=== PATIENT | male | born 1975 | race Caucasian/White ===

== ENCOUNTER 2022-03-04 13:06 | Emergency (ER) | payer BC, SELFPAY ==
[2022-03-04 13:07] VITALS: BP 143/85; PULSE 60; RESP 18; TEMP 36.4; O2SAT 99; BMI 30.1
--- NOTE | 2022-03-04 14:51 | EX.ED.UPPERE ---
HPI History of Present Illness Chief Complaint: Upper Extremity Injury Detail of Chief Complaint: Blunt, right index finger a couple hours prior to presentation Informant: patient Occured/Mechanism Mechanism/Context: Yes blunt trauma and Yes crush Comment: Hit with a sledgehammer Onset/Context/Timing Context: Sudden Onset Timing: Continuous Quality of Pain: Dull, Aching and Throbbing Location: Right index finger Current Severity: Mild Maximum Severity: Severe Worsened by: Initial injury Relieved by: Nothing specific Associated Symptoms Associated Symptoms: Positive for Loss of Funtion; Negative for Parasthesia or Weakness Narrative Narrative: Patient is a 46-year-old male who presents with injury to his right index finger. This occurred due to blunt trauma. He was seen by his PCP. 2 stitches were placed. He was anesthetized locally. He denies paresthesia, anesthesia medics. He is unable to flex or extend at the PIP joint. X-ray was performed as outpatient and patient has a fracture dislocation of the PIP joint. The fracture is involving the condyles of the proximal phalanx. It does go into the joint. Tetanus Immunization: Unknown Prior similar symptoms: No Recent Illness/Hospitalization: No PFSH PFSH Medical History Seasonal allergies Home Medications fluticasone propionate 50 mcg/actuation nasal spray,suspension 1 spray DAILY PRN PRN Allergies 02/12/14 [History Last Taken Unknown] ibuprofen 200 mg tablet 200 mg PO Q6H PRN PRN Mild/Moderate Pain 02/12/14 [History Last Taken Unknown] cephalexin 500 mg capsule 500 mg PO Q6 #20 CAPSULES 03/04/22 [Rx Last Taken Unknown] Allergy/AdvReac Type Severity Reaction Status Date / Time No Known Allergies Allergy Verified 03/04/22 13:07 Surgical History H/O hernia repair Hx of tonsillectomy Social History (Updated 03/04/22 @ 14:[address] Avtar Merchant MD) household members: spouse Smoking Status: Never smoker substance use type: does not use ROS ROS ED Constitutional Constitutional ED: Reports other Details: Patient last ate at 0930 ; Denies chills, fever(s), subjective, sweats or weight loss Eyes Eyes: Denies blurry vision, change in vision or diplopia ENT ENT ED: Denies ear pain, rhinorrhea or sore throat Cardiovascular Cardiovascular: Denies chest pain or palpitations Respiratory/Chest Respiratory/Chest: Denies cough or dyspnea Musculoskeletal Musculoskeletal: Reports other Details: Patient states he believes he can see the bone. 2 stitches were placed by his position. These will require removal for examination ; Denies back pain, myalgias or neck pain Integumentary Reports other Details: Laceration dorsal side right index finger over the PIP joint Neurologic Neurologic: Denies paresthesias or weakness Hematologic/Lymphatic Hematologic/Lymphatic: Denies easy bleeding or easy bruising EXAM Physical Exam Const Vital Signs: 03/04/22 13:07 Temperature 97.5 F L Temperature Source Temporal Pulse Rate 60 Respiratory Rate 18 Blood Pressure 143/85 H Blood Pressure Mean 104 Pulse Ox 99 Oxygen Delivery Method Room Air Positive well nourished and well developed General Appearance ED: well developed and NAD HEENT Reports moist mucous membranes normocephalic and atraumatic Eyes PERRL and EOMs intact bilaterally Eyes Narrative: Sclera is anicteric. Can is pink. Neck full ROM and supple Resp normal respiratory effort and clear to auscultation bilaterally Cardio regular rate, regular rhythm, S1 normal heart sound, S2 normal heart sound and no murmurs GI non-tender, non-distended and no masses Auscultation: normoactive bowel sounds Palpation: soft Extremity Negative for normal to inspection Extremity Narrative: Patient has deformity with right index finger in flexion at the PIP joint. He has normal capillary refill. He has normal two-point discrimination. There is no subungual hematoma noted. He has no pain the patient over the distal DIP joint. He has no pain the patient over the MCP joint. There is no evidence of injury to the thumb, long finger, ring finger or little finger. Neuro oriented x3, CN's II-XII intact bilaterally, moves all extremities, no focal motor deficits and no sensory deficits noted Neuro Narrative: Median, radial and ulnar action and tach. Sensorium / Orientation: alert Psych mental status grossly normal Skin Skin Narrative: Laceration over the dorsal side of the PIP joint right index finger Rashes: no rashes Trauma: laceration MDM MDM MDM Narrative Medical decision making narrative: Digital block was placed. The fracture dislocation was reduced. Patient states he is back in flexion unable to extend. The sutures were removed. Patient has evidence of a traumatic arthrotomy. There is evidence of involvement of the extensor tendon and central slip. Suspect this is why patient's finger falls in flexion and unable to extend. Will obtain x-ray to determine if the joint has been reduced. Since there is involving the extensor tendon the central slip and jones will contact physician on-call for [facility] for definitive care. Because of the type of injury Dr. Atkins for [facility] was contacted. She would like patient to call office on Monday to be seen on Monday. She agrees with treatment. She requested cephalexin 4 times a day. Postreduction film is pending. Radiography Diagnostic Testing: Three-view x-ray of the right index finger reveals reduction of the dislocation. There is a fracture involving the ulnar condyle of the proximal phalanx. There is no other abnormality noted. Procedures Other Procedures Procedure(s): 1. Digital block 2. The wound was irrigated with 1 L of normal saline. The wound was approximated with 3 simple erupted sutures. Length of laceration 2.5 cm. 3. Reduction of dislocated PIP joint. Traction was applied and the joint was easily reduced. Awaiting postreduction film. Discharge Plan Triage Chief Complaint: Upper Extremity Injury ED Provider: Avtar Merchant Dx/Rx/DC Orders Clinical Impression: Open fracture dislocation of finger, Extensor tendon laceration, finger, open wound Instructions: ED Open Hand Fracture (Adult) Prescriptions: New cephalexin [cephalexin] 500 mg capsule 500 mg PO Q6 Qty: 20 0RF No Action ibuprofen 200 MG tablet 200 mg PO Q6H PRN PRN (Reason: Mild/Moderate Pain) fluticasone propionate 1 SPRAY spray,suspension 1 spray NASAL DAILY PRN PRN (Reason: Allergies) Primary Care Provider: Wilson Wilson Referrals: Wilson Wilson MD [Primary Care Provider] - Faviola Mcleod MD [Non-Staff] - As soon as possible Activity Restrictions/Additional Instructions: 1. Keep finger absolutely clean and dry 2. Take antibiotics as directed until gone 3. Call Dr. Faviola Mcleod's office Monday to be seen Monday. Telephone number is [phone] Disposition Disposition: Home, Self Care
[2022-03-04] MEDS: Lidocaine 1% (20 ml mdv) 20 ML Vial 5 ML INFILT (15:04)
[2022-03-04] MEDS: Diphth,Pertuss(Acell),Tet Vac 0.5 ML Vial IM (15:25)
[2022-03-04] MEDS: Cefazolin 1 GM/50 ML BAG IV (15:37)
[2022-03-04] MEDS: Lidocaine 1% (20 ml mdv) 20 ML Vial INFILT (16:25)
--- NOTE | 2022-03-04 16:25 | RAD_ITS ---
EXAM: XR RIGHT FINGERS, 2 OR MORE VIEWS CLINICAL INDICATION: Injury/Pain -- Duction of dislocation/fracture PIP joint TECHNIQUE: Frontal, lateral and oblique views of the fingers of the right hand. This report was created using [employer] report generation technology. COMPARISON: None. FINDINGS: BONES/JOINTS: Unremarkable. No acute fracture. No subluxation. Normal alignment. Preservation of the joint space. No sclerotic or destructive changes observed. SOFT TISSUES: Mild soft tissue swelling over the proximal interphalangeal joint. No radiopaque foreign body. RAD/Finger(s) Min 2 Views IMPRESSION: Minimal soft tissue swelling with no osseous abnormalities of the right second finger. Electronically Signed: Delano Michelle MD at 16:45 EST ,
[2022-03-04 16:41] VITALS: BP 134/78; PULSE 78; RESP 18; TEMP 36.4; O2SAT 100
== END 2022-03-04 16:55 | disposition home or self-care (01) ==
PROVIDERS: Emergency Provider Emergency Medicine; PCP Family Medicine; Visit Provider Emergency Medicine
DX: S62.600B Fracture of unspecified phalanx of right index finger, initial encounter for open fracture (principal); S66.322A Laceration of extensor muscle, fascia and tendon of right middle finger at wrist and hand level, initial encounter; Z23 Encounter for immunization; X58.XXXA Exposure to other specified factors, initial encounter
CPT/HCPCS: 12001; 73140; 90471; 90715; 96365; 99285; A4216

== ENCOUNTER → 2022-03-04 | Outpatient (CLI) | payer BC, SELFPAY ==
--- NOTE | 2022-03-04 11:21 | RAD_ITS ---
STUDY: X-RAY - RIGHT HAND, ATTENTION SECOND FINGER REASON FOR EXAM: Male, 46 years old. Hand injury. Pain. TECHNIQUE: 3 view(s) of the finger were obtained. COMPARISON: None. FINDINGS: Osteopenia. 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 Minimally displaced fracture of the head of the second metacarpal with intra-articular extension. Soft tissue swelling at the fracture site. RAD/Finger(s) Min 2 Views IMPRESSION: Osteopenia with fracture of the second metacarpal head with intra-articular extension. 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 Electronically Signed: Gino Cesar, at 11:58 EST ,
== END | disposition home or self-care (01) ==
LOC: MTRAD 11:13
PROVIDERS: PCP Family Medicine; Referring Provider Family Medicine; Visit Provider Family Medicine
DX: S69.91XA Unspecified injury of right wrist, hand and finger(s), initial encounter (principal)
CPT/HCPCS: 73140

== ENCOUNTER 2022-05-13 08:30 | Outpatient (RCR) | payer BC, SELFPAY ==
--- NOTE | 2022-04-18 18:48 | HP.OTEVAL ---
Patient's Visit Information AURA WHITFIELD is a 47 year old M, referred to Occupational Therapy by Dr. Faviola Mcleod MD, with a diagnosis of right IF proximal phalanx open fx, and extensor tendon laceration. Date of Evaluation: 04/15/22 Occupational Therapist: Radha Rodriguez, CE/Edi, CHT - Subjective This 47 year old male was seen for OT eval with dx of open displaced fracture of proximal phalanx IF- pt states he hit his hand while placing a post- followed with referral to Dr. Mcleod- DOI 03/04/22. and DOS 03/08/22. pt underwent a right IF proximal phalanx open reduction internal fixation at PIPJ, and Extensor tendon repair wound closure. pt is right handed. pt works [employer] 3rd shift. pt has limited ROM and this limits pts IND. with ADLs and IADls. pt would like to return to his PLOF. - Pain right IF 0 Pain Intensity Range: 3 - ROM MP: right IF -12/40 left 0/85 PIP: right IF -12/40 left 0/105 DIP: right -10/0 left 0/70 ROM Comments: pt demo with slight Boutonniere deformity. - Strength Business And Services Instructor: right NT left 110# Lateral Pinch: right NT left 22# Tripod Pinch: right NT left 16# - Sensation Sensation Comments: denies - Quick DASH-Disab of Arm,Shoulder& Hand Quick DASH Score: 7.1425 - Goals Goal:100% adherence to protocol: Yes Comment: extensor tendon protocol zone 2/3 Goal:Daily scar massage when approriate: Yes Goal:ROM equal to unaffected hand: Yes Goal:Business And Services Instructor/Pinch strength at least 75% of unaffected hand: Yes Goal:No pain with affected hand use: Yes Goal:PIP Circumferences equal to unaffected hand: Yes - Rehabilitation General Assessment: pt 5 weeks and 2 days s/p from ORIF of displaced fx of proximal phalanx of right IF with extensor tendon repair ( possible zone 2-3). pt extensor tendon was repaired with FiberWire and fx repaired with internal fixation. pt arrives today with orders from order dated on 03/25/22 to initiate ROM in two weeks ( which should have been 04/08/22). Pt is currently 3 weeks past date of ROM initiation. pt states he started to move it on his own and feels it is moving. Today pt demo with hyper ext at MP with attempts to straighten finger - PIP is slight flex and DIP in hyper ext. demo slight Boutonniere deformity. therapist ed. on limiting hyper ext at MP while working on extending his PIPJ. pt demo understanding. Pt does feel pull with DIP initiation of movement. therapist advised pt in holding end range AROM for 8-10 sec. pt demo understanding. pt would benefit from skilled OTR/L,CHT services 1-2x week for 8 weeks but due to pts concerns with cost of therapy therapy will work with what pt is willing to attend. Rehabilitation Potential: Good - Anticipated Interventions A/AAROM/PROM, Strengthening, Edema Control, Scar Care, Triggerpoint Release, Modalities, Orthoses, Joint Protection/Energy Conservation, Fine Motor Coord/Juan Miguel, Education re Diagnosis, Home Program - Visit Plan Frequency: 1-2x /Week Duration: 2 Months General Plan: Pt. HAS CONCERNS WITH COST OF THERAPY, AND EVEN THOUGHT TO JUST GO SEE HIS FAMILY TO WORK ON HIS HAND. THERAPIST ED. PT ON NEED OF SKILLED THERAPY SERVICES A CHT, PT DEMO UNDERSTANDING- THERAPIST ED. PT ON AROM EX AND SCAR MTG. ADVISED TO RETURN TO CLINIC IN ONE WEEK IN PT DID NOT SEE GAINS IN HIS ROM AND THAT OUR [facility] WOULD HELP ASSIST WITH PAYMENTS. PT DEMO UNDERSTANDING AND AGREE. THERAPIST ADVISED TO RETURN FOR MEASURMENTS PRIOR TO DR. REDDING SO CAN HAVE UPDATED MEASURMETNS PRIOR TO RETURNING TO HIS APT. PT DEMO UNDERSTANDING AND AGREED TO POC. TEXT: Thank you for the opportunity to evaluate your patient. For Medicare and Medicare HMO plans, please review the plan of care and approve it. It will need to be FAXED BACK to us at [phone] for Medicare purposes. Please let me know if there are questions or concerns regarding this plan of care. Physician Signature: Date:
--- NOTE | 2022-05-03 14:59 | HP.OTREVAL ---
Dr. Faviola Mcleod MD, It has been my pleasure to treat AURA WHITFIELD over the last 3 visits for right IF proximal phalanx open fx, and extensor tendon laceration. Please see the progress note below for an update on the occupational therapy plan of care! Subjective: pt 8 weeks s/p extensor tendon repair and fx of phalanx - today from pt arrives states he was massaging the sides of his finger while trying to bend his finger and an hour later finger has been painful - pt states swelling and pain with movement since- is using cool tap water - digi sleeve and orthosis until pain decreases. Objective/Function: right IF PIP ROM -20/48* initial was -12/40. right IF DIP ROM +5/5* initial no motion. swelling of IF .8. pt is following his HEP with scar mtg- using digi sleeve for edema and orthosis when he is up and moving- Plan Frequency: 1-2x /Week Duration: 2 Months Goals - Goals Patient Goals: Regain Mobility, Decrease Swelling/Stiffness, Improve Fine Motor Skills, Be More Independent in ADLS Goal:100% adherence to protocol: Yes Goal:Daily scar massage when approriate: Yes Goal:ROM equal to unaffected hand: Yes Goal:Chemical Treatment Plant Technician/Pinch strength at least 75% of unaffected hand: Yes Goal:No pain with affected hand use: Yes Goal:PIP Circumferences equal to unaffected hand: Yes Anticipated Interventions Anticipated Interventions: A/AAROM/PROM, Strengthening, Edema Control, Scar Care, Triggerpoint Release, Modalities, Orthoses, Joint Protection/Energy Conservation, Fine Motor Coord/Juan Miguel, Education re Diagnosis, Home Program Please do not hesitate to contact me at [phone] by phone or if you have questions or concerns regarding this new plan of care! Sincerely, Radha Rodriguez, ABBIER/L, CHT
--- NOTE | 2022-07-27 15:40 | HP.OT.NRP ---
AURA WHITFIELD was seen in my office for initial evaluation on 04/15/22. The following Plan of Care was established for this patient: Initial Frequency: 1-2x /Week Initial Duration: 2 Months Anticipated Interventions: A/AAROM/PROM, Strengthening, Edema Control, Scar Care, Triggerpoint Release, Modalities, Orthoses, Joint Protection/Energy Conservation, Fine Motor Coord/Juan Miguel, Education re Diagnosis, Home Program This patient was last seen in our office 05/13/22. Pertinent comments regarding their Occupational therapy will appear below: pt was seen for 4 OT session following extensor tendon repair. Due to time lapse in services pt d.c. At this point I will be discontinuing this patient from occupational therapy. I would be happy to see this patient again in the future if found appropriate by the physician. Thank you! Radha Rodriguez, OTR/L, CHT
== END 2022-05-13 19:00 | disposition home or self-care (01) ==
LOC: OT 08:30
PROVIDERS: PCP Family Medicine; Referring Provider Orthopaedic Surgery Hand Surgery; Visit Provider Orthopaedic Surgery Hand Surgery
DX: S62.610D Displaced fracture of proximal phalanx of right index finger, subsequent encounter for fracture with routine healing (principal)
CPT/HCPCS: 97110; 97140; 97166; 97530

== ENCOUNTER → 2023-11-30 | Outpatient (CLI) | payer BC, SELFPAY ==
[2023-11-30 12:36] LABS: Anion Gap 4 (5-15); BUN 13 mg/dL (7-18); BUN/Creat Ratio 15.2 RATIO (10-20); Calcium,Total 9.2 mg/dL (8.5-10.1); Chloride 105 mmol/L (98-107); Creatinine, Serum 0.86 mg/dL (0.70-1.30); EST Glomerular Filtration Rate 100 mL/min (>60); Est Glom Filt Rate - Afr Amer 121 mL/min (>60); Glucose 100 mg/dL (74-106); PSA,Total - Annual Screen 0.42 ng/mL (0.00-4.00); Potassium 4.3 mmol/L (3.5-5.1); Sodium Level 140 mmol/L (136-145)
== END | disposition home or self-care (01) ==
PROVIDERS: PCP Family Medicine; Referring Provider Family Medicine; Visit Provider Family Medicine
DX: Z13.1 Encounter for screening for diabetes mellitus (principal); Z12.5 Encounter for screening for malignant neoplasm of prostate
CPT/HCPCS: 36415; 80048; 84153; G0103